=== PATIENT | female | born 1940 | race African-American/Black ===

== ENCOUNTER 2016-12-29 21:11 | Inpatient (IN) | payer MEDICARE, OTHER ==
[~2016-12-29] VITALS: Ht 162.6 cm; Wt 65.8 kg
[2016-12-29 22:01] LABS: BASOPHILS % 0.3 % (0.0-2.0); EOSINOPHILS % 1.5 % (0.0-5.0); HEMATOCRIT. 31.4 % (36.0-48.0); HEMOGLOBIN. 10.2 g/dL (12.0-16.0); LYMPHOCYTES % 10.4 % (20.0-50.0); MEAN CORPUSCULAR HEMOGLOBIN 29.5 pg (28.0-32.0); MEAN CORPUSCULAR VOLUME 90.8 fL (81.0-99.0); MEAN PLATELET VOLUME 8.3 fl (7.4-10.4); MONOCYTES % 5.3 % (2.0-8.0); NEUTROPHILS % 82.5 % (40.0-76.0); PLATELET 215 x1000/uL (130-400); RED BLOOD CELL COUNT 3.46 mill/uL (4.2-5.4); RED CELL DISTRIBUTION WIDTH 14.5 % (11.6-14.6)
[2016-12-29 22:08] LABS: INR 1.1; PROTHROMBIN TIME 11.3 sec (9.4-11.6)
[2016-12-29 22:18] LABS: CARBON DIOXIDE 24 mEq/L (21-32); CHLORIDE 108 mEq/L (98-107); TROPONIN I 0.29 ng/mL (0.00-0.04)
[2016-12-29] MEDS ORDERED: ASPIRIN 325MG EC TABLET PO ONE (22:45)
[2016-12-29] MEDS ORDERED: FUROSEMIDE 40MG/4ML VIAL IVP ONE (22:45)
[2016-12-29 23:50] VITALS: BP 139/77
[2016-12-30] VITALS (9 sets, daily range): BP systolic 136–161; BP diastolic 71–85
[2016-12-30] MEDS ORDERED: IPRATROPIUM/ALBUTEROL 0.5-3(2.5)MG/3ML NEB INH PRN (01:00)
[2016-12-30] MEDS ORDERED: ACETAMINOPHEN 325MG TABLET PO PRN (01:00)
[2016-12-30] MEDS ORDERED: MORPHINE SULFATE 2 MG/ML CPJ (NOT FOR IM USE) IV PRN (01:00)
[2016-12-30] MEDS ORDERED: HYDROCODONE/ACETAMINOPHEN 5/325MG TABLET PO PRN (01:00)
[2016-12-30] MEDS ORDERED: LORAZEPAM 2MG/ML CPJ IV PRN (01:00)
[2016-12-30] MEDS ORDERED: ONDANSETRON HCL 4MG/2ML VIAL IV PRN (01:00)
[2016-12-30] MEDS ORDERED: CLONIDINE 0.1MG TABLET PO PRN (01:00)
[2016-12-30] MEDS ORDERED: DEXTROSE 50% WATER 50ML SYRINGE IV PRN (01:30)
[2016-12-30] MEDS: INSULIN LISPRO 100 UNITS/ML SUBCUT SCH ×4 (08:00→21:00)
[2016-12-30] MEDS: BLOOD SUGAR DIAGNOSTIC STRIP TEST SCH ×4 (08:22→21:26)
[2016-12-30 11:48] LABS: TROPONIN I 0.29 ng/mL (0.00-0.04)
[2016-12-30] MEDS ORDERED: CARVEDILOL 3.125 MG TABLET PO SCH ×2 (13:30→21:00)
[2016-12-30] MEDS: FERROUS SULFATE 325MG TABLET PO SCH (13:56)
[2016-12-30] MEDS: AMLODIPINE 10MG TABLET PO SCH (13:59)
[2016-12-30] MEDS: CARVEDILOL 6.25 MG TABLET PO SCH ×2 (13:59→21:25)
[2016-12-30] MEDS: DOCUSATE SODIUM 100MG CAPSULE PO PRN (14:00)
[2016-12-30] MEDS ORDERED: ISOSORB DINIT/HYDRALAZINE HCL 20/37.5MG TABLET PO SCH (14:00)
[2016-12-30] MEDS: ASPIRIN 81MG EC TABLET PO SCH (14:00)
[2016-12-30] MEDS: HYDRALAZINE HCL 50MG TABLET PO SCH ×2 (14:01→21:26)
[2016-12-30] MEDS: ISOSORBIDE MONONITRATE 30MG TABLET SR 24HR PO SCH (14:01)
[2016-12-30] MEDS: ENOXAPARIN 30MG/0.3ML SYR SUBCUT SCH (14:03)
[2016-12-30] MEDS: FUROSEMIDE 40MG/4ML VIAL IV SCH (14:08)
[2016-12-30 15:29] LABS: BASOPHILS % 0.7 % (0.0-2.0); EOSINOPHILS % 3.2 % (0.0-5.0); HEMATOCRIT. 28.6 % (36.0-48.0); HEMOGLOBIN. 9.5 g/dL (12.0-16.0); LYMPHOCYTES % 20.2 % (20.0-50.0); MEAN CORPUSCULAR HEMOGLOBIN 29.9 pg (28.0-32.0); MEAN CORPUSCULAR VOLUME 90.1 fL (81.0-99.0); MONOCYTES % 10.2 % (2.0-8.0); NEUTROPHILS % 65.7 % (40.0-76.0); PLATELET 202 x1000/uL (130-400); RED BLOOD CELL COUNT 3.17 mill/uL (4.2-5.4); RED CELL DISTRIBUTION WIDTH 13.8 % (11.6-14.6)
[2016-12-30 15:29] LABS: BG CARBOXYHEMOGLOBIN 0.2 % (0.5-1.5); BG DEOXYHEMOGLOBIN 2.1 % (0.0-5.0); BG FRACTION INSPIRED OXYGEN 100; BG HCO3 ACT 22.9 mmol/L (22.0-26.0); BG METHEMOGLOBIN 0.3 % (0.0-1.5); BG OXYGEN SATURATION 97.9 % (92.0-98.5); BG OXYHEMOGLOBIN 97.4 % (94.0-97.0); BG PCO2 34.5 mmHg (35.0-45.0); BG PH 7.439 (7.350-7.450); BG PO2 368.2 mmHg (75.0-100.0); BG SAMPLE SITE RIGHT RADIAL; BG TOTAL HEMOGLOBIN 9.6 g/dL (12.0-18.0); BG VENT MODE MASK - NRB
[2016-12-30] MEDS: INSULIN DETEMIR UD 100 UNITS/ML SYR SUBCUT SCH (21:24)
[2016-12-30] MEDS: ATORVASTATIN CALCIUM 40MG TABLET PO SCH (21:24)
[2016-12-30] MEDS: DONEPEZIL HCL 5MG TABLET PO SCH (21:25)
[2016-12-31] VITALS (13 sets, daily range): BP systolic 117–162; BP diastolic 63–81
[2016-12-31] MEDS: HYDRALAZINE HCL 50MG TABLET PO SCH (06:03)
[2016-12-31 07:08] LABS: BASOPHILS % 0.6 % (0.0-2.0); EOSINOPHILS % 4.3 % (0.0-5.0); HEMATOCRIT. 28.4 % (36.0-48.0); HEMOGLOBIN. 9.5 g/dL (12.0-16.0); LYMPHOCYTES % 20.4 % (20.0-50.0); MEAN CORPUSCULAR VOLUME 89.7 fL (81.0-99.0); MEAN PLATELET VOLUME 8.7 fl (7.4-10.4); NEUTROPHILS % 65.7 % (40.0-76.0); PLATELET 228 x1000/uL (130-400); RED BLOOD CELL COUNT 3.17 mill/uL (4.2-5.4); RED CELL DISTRIBUTION WIDTH 14.3 % (11.6-14.6)
[2016-12-31 07:50] LABS: CARBON DIOXIDE 24 mEq/L (21-32); CHLORIDE 111 mEq/L (98-107); HDL CHOLESTEROL 32 mg/dL (40-59); LDL CHOLESTEROL 49 mg/dL (5-100)
[2016-12-31] MEDS: INSULIN LISPRO 100 UNITS/ML SUBCUT SCH ×4 (08:00→21:18)
[2016-12-31] MEDS: BLOOD SUGAR DIAGNOSTIC STRIP TEST SCH ×4 (08:20→21:11)
[2016-12-31] MEDS: FERROUS SULFATE 325MG TABLET PO SCH (08:50)
[2016-12-31] MEDS: ISOSORBIDE MONONITRATE 30MG TABLET SR 24HR PO SCH (08:50)
[2016-12-31] MEDS: ASPIRIN 81MG EC TABLET PO SCH (08:50)
[2016-12-31] MEDS: CARVEDILOL 6.25 MG TABLET PO SCH (08:50)
[2016-12-31] MEDS: AMLODIPINE 10MG TABLET PO SCH (08:50)
[2016-12-31] MEDS: FUROSEMIDE 40MG/4ML VIAL IV SCH (08:50)
[2016-12-31] MEDS: ENOXAPARIN 30MG/0.3ML SYR SUBCUT SCH (08:51)
[2016-12-31] MEDS: LOSARTAN POTASSIUM 25 MG TABLET PO SCH (14:29)
[2016-12-31] MEDS: HYDRALAZINE HCL 100MG TABLET PO SCH ×2 (14:29→21:04)
[2016-12-31] MEDS: CARVEDILOL 12.5MG TABLET PO SCH (21:03)
[2016-12-31] MEDS: DONEPEZIL HCL 5MG TABLET PO SCH (21:03)
[2016-12-31] MEDS: ATORVASTATIN CALCIUM 40MG TABLET PO SCH (21:04)
[2016-12-31] MEDS: LORAZEPAM 2MG/ML CPJ IV PRN (21:06)
[2016-12-31] MEDS: INSULIN DETEMIR UD 100 UNITS/ML SYR SUBCUT SCH (21:19)
[2017-01-01] VITALS (12 sets, daily range): BP systolic 112–167; BP diastolic 55–85
[2017-01-01] MEDS: HYDRALAZINE HCL 100MG TABLET PO SCH ×3 (05:52→21:20)
[2017-01-01 06:10] LABS: BASOPHILS % 0.4 % (0.0-2.0); EOSINOPHILS % 0.9 % (0.0-5.0); HEMATOCRIT. 30.2 % (36.0-48.0); HEMOGLOBIN. 9.9 g/dL (12.0-16.0); LYMPHOCYTES % 10.9 % (20.0-50.0); MEAN CORPUSCULAR HEMOGLOBIN 29.5 pg (28.0-32.0); MEAN CORPUSCULAR VOLUME 89.7 fL (81.0-99.0); MEAN PLATELET VOLUME 8.3 fl (7.4-10.4); NEUTROPHILS % 81.8 % (40.0-76.0); PLATELET 262 x1000/uL (130-400); RED BLOOD CELL COUNT 3.36 mill/uL (4.2-5.4); RED CELL DISTRIBUTION WIDTH 14.2 % (11.6-14.6)
[2017-01-01] MEDS: INSULIN LISPRO 100 UNITS/ML SUBCUT SCH ×4 (08:00→21:43)
[2017-01-01] MEDS: BLOOD SUGAR DIAGNOSTIC STRIP TEST SCH ×4 (08:10→21:28)
[2017-01-01] MEDS: FUROSEMIDE 40MG/4ML VIAL IV SCH (08:24)
[2017-01-01] MEDS: FERROUS SULFATE 325MG TABLET PO SCH (08:24)
[2017-01-01] MEDS: ENOXAPARIN 30MG/0.3ML SYR SUBCUT SCH (08:24)
[2017-01-01] MEDS: AMLODIPINE 10MG TABLET PO SCH (08:25)
[2017-01-01] MEDS: ISOSORBIDE MONONITRATE 30MG TABLET SR 24HR PO SCH (08:25)
[2017-01-01] MEDS: ASPIRIN 81MG EC TABLET PO SCH (08:25)
[2017-01-01] MEDS: CARVEDILOL 12.5MG TABLET PO SCH ×2 (08:25→21:23)
[2017-01-01] MEDS: LOSARTAN POTASSIUM 25 MG TABLET PO SCH (08:26)
[2017-01-01] MEDS: ATORVASTATIN CALCIUM 40MG TABLET PO SCH (21:23)
[2017-01-01] MEDS: LORAZEPAM 2MG/ML CPJ IV PRN (21:23)
[2017-01-01] MEDS: DONEPEZIL HCL 5MG TABLET PO SCH (21:23)
[2017-01-01] MEDS: INSULIN DETEMIR UD 100 UNITS/ML SYR SUBCUT SCH (21:48)
[2017-01-02] VITALS (12 sets, daily range): BP systolic 109–146; BP diastolic 54–75
[2017-01-02] MEDS: HYDRALAZINE HCL 100MG TABLET PO SCH ×3 (06:12→21:52)
[2017-01-02 06:41] LABS: BASOPHILS % 0.9 % (0.0-2.0); EOSINOPHILS % 3.4 % (0.0-5.0); HEMATOCRIT. 34.6 % (36.0-48.0); HEMOGLOBIN. 11.5 g/dL (12.0-16.0); LYMPHOCYTES % 21.6 % (20.0-50.0); MEAN CORPUSCULAR HEMOGLOBIN 30.2 pg (28.0-32.0); MEAN CORPUSCULAR VOLUME 90.9 fL (81.0-99.0); MEAN PLATELET VOLUME 8.1 fl (7.4-10.4); MONOCYTES % 7.8 % (2.0-8.0); NEUTROPHILS % 66.3 % (40.0-76.0); PLATELET 283 x1000/uL (130-400); RED CELL DISTRIBUTION WIDTH 14.3 % (11.6-14.6)
[2017-01-02] MEDS: INSULIN LISPRO 100 UNITS/ML SUBCUT SCH ×4 (08:00→21:53)
[2017-01-02] MEDS: BLOOD SUGAR DIAGNOSTIC STRIP TEST SCH ×4 (08:03→21:54)
[2017-01-02] MEDS: FUROSEMIDE 40MG/4ML VIAL IV SCH (09:01)
[2017-01-02] MEDS: LOSARTAN POTASSIUM 25 MG TABLET PO SCH (09:02)
[2017-01-02] MEDS: ASPIRIN 81MG EC TABLET PO SCH (09:03)
[2017-01-02] MEDS: AMLODIPINE 10MG TABLET PO SCH (09:03)
[2017-01-02] MEDS: ISOSORBIDE MONONITRATE 30MG TABLET SR 24HR PO SCH (09:04)
[2017-01-02] MEDS: FERROUS SULFATE 325MG TABLET PO SCH (09:04)
[2017-01-02] MEDS: CARVEDILOL 12.5MG TABLET PO SCH ×2 (09:04→21:52)
[2017-01-02] MEDS: ENOXAPARIN 30MG/0.3ML SYR SUBCUT SCH (09:06)
[2017-01-02 15:12] LABS: ANTI-NUCLEAR ANTIBODIES DIRECT Positive (Negative)
[2017-01-02] MEDS: DONEPEZIL HCL 5MG TABLET PO SCH (21:51)
[2017-01-02] MEDS: ATORVASTATIN CALCIUM 40MG TABLET PO SCH (21:52)
[2017-01-02] MEDS: INSULIN DETEMIR UD 100 UNITS/ML SYR SUBCUT SCH (21:54)
[2017-01-03] VITALS (10 sets, daily range): BP systolic 126–185; BP diastolic 56–80
[2017-01-03] MEDS: HYDRALAZINE HCL 100MG TABLET PO SCH ×3 (05:36→21:15)
[2017-01-03] MEDS: INSULIN LISPRO 100 UNITS/ML SUBCUT SCH ×4 (08:00→21:31)
[2017-01-03] MEDS: BLOOD SUGAR DIAGNOSTIC STRIP TEST SCH ×4 (08:10→21:32)
[2017-01-03] MEDS: AMLODIPINE 10MG TABLET PO SCH (08:31)
[2017-01-03] MEDS: ASPIRIN 81MG EC TABLET PO SCH (08:31)
[2017-01-03] MEDS: DOCUSATE SODIUM 100MG CAPSULE PO PRN (08:31)
[2017-01-03] MEDS: CARVEDILOL 12.5MG TABLET PO SCH ×2 (08:32→21:16)
[2017-01-03] MEDS: FUROSEMIDE 40MG/4ML VIAL IV SCH (08:32)
[2017-01-03] MEDS: LOSARTAN POTASSIUM 25 MG TABLET PO SCH (08:33)
[2017-01-03] MEDS: FERROUS SULFATE 325MG TABLET PO SCH (08:34)
[2017-01-03] MEDS: ISOSORBIDE MONONITRATE 30MG TABLET SR 24HR PO SCH (08:34)
[2017-01-03] MEDS: ENOXAPARIN 30MG/0.3ML SYR SUBCUT SCH (08:41)
[2017-01-03 09:11] LABS: DRVVT LA 42.6 sec (0.0-47.0)
[2017-01-03 10:06] LABS: LUPUS ANTICOAG INTERPRETATION Comment: (.)
[2017-01-03] MEDS: ATORVASTATIN CALCIUM 40MG TABLET PO SCH (21:15)
[2017-01-03] MEDS: DONEPEZIL HCL 5MG TABLET PO SCH (21:16)
[2017-01-03] MEDS: INSULIN DETEMIR UD 100 UNITS/ML SYR SUBCUT SCH (21:32)
[2017-01-04] VITALS (10 sets, daily range): BP systolic 119–147; BP diastolic 63–79
[2017-01-04] MEDS: HYDRALAZINE HCL 100MG TABLET PO SCH ×3 (05:30→22:13)
[2017-01-04] MEDS: BLOOD SUGAR DIAGNOSTIC STRIP TEST SCH ×4 (07:30→21:02)
[2017-01-04] MEDS: INSULIN LISPRO 100 UNITS/ML SUBCUT SCH ×4 (08:00→21:16)
[2017-01-04] MEDS: CARVEDILOL 12.5MG TABLET PO SCH ×2 (10:07→21:09)
[2017-01-04] MEDS: DOCUSATE SODIUM 100MG CAPSULE PO PRN (10:08)
[2017-01-04] MEDS: ISOSORBIDE MONONITRATE 30MG TABLET SR 24HR PO SCH (10:08)
[2017-01-04] MEDS: FERROUS SULFATE 325MG TABLET PO SCH (10:08)
[2017-01-04] MEDS: LOSARTAN POTASSIUM 25 MG TABLET PO SCH (10:08)
[2017-01-04] MEDS: ASPIRIN 81MG EC TABLET PO SCH (10:08)
[2017-01-04] MEDS: FUROSEMIDE 40MG/4ML VIAL IV SCH (10:09)
[2017-01-04] MEDS: AMLODIPINE 10MG TABLET PO SCH (10:09)
[2017-01-04] MEDS: ENOXAPARIN 30MG/0.3ML SYR SUBCUT SCH (10:26)
[2017-01-04] MEDS ORDERED: LORAZEPAM 2MG/ML CPJ IV PRN (10:45)
[2017-01-04] MEDS: DONEPEZIL HCL 5MG TABLET PO SCH (21:09)
[2017-01-04] MEDS: ATORVASTATIN CALCIUM 40MG TABLET PO SCH (21:09)
[2017-01-04] MEDS: INSULIN DETEMIR UD 100 UNITS/ML SYR SUBCUT SCH (21:16)
[2017-01-05 09:07] LABS: ANGIOTENSION CONVERTING ENZYME 74 U/L (14-82)
[2017-01-05 13:12] LABS: ANTI-MYELOPEROXIDASE AB < 9.0 U/mL (0.0-9.0); ANTI-PROTEINASE 3 ABS < 3.5 U/mL (0.0-3.5)
[2017-01-05 14:17] LABS: ATYPICAL P-ANCA <1:20 titer (Neg:<1:20); CYTOPLASMIC C-ANCA <1:20 titer (Neg:<1:20); PERINUCLEAR P-ANCA <1:20 titer (Neg:<1:20)
== END 2017-01-04 23:45 | DRG 291 ==
LOC: ER 21:11 → EDBEDREQTM 22:45 → EDBEDREQ 22:45 → 5EST 22:45 → ENRESERV 23:00 → 5EST 01-01 21:35
PROVIDERS: ADMIT Family Medicine Adult Medicine; ATTEND Family Medicine Adult Medicine
PROC: 5A09557 Assistance with Respiratory Ventilation, Greater than 96 Consecutive Hours, Continuous Positive Airway Pressure (ICD-10-PCS; principal; 2016-12-29)
DX: I13.0 Hypertensive heart and chronic kidney disease with heart failure and stage 1 through stage 4 chronic kidney disease, or unspecified chronic kidney disease (principal); J96.00 Acute respiratory failure, unspecified whether with hypoxia or hypercapnia; N17.0 Acute kidney failure with tubular necrosis; E43 Unspecified severe protein-calorie malnutrition; E87.2 Acidosis; J18.9 Pneumonia, unspecified organism; N18.4 Chronic kidney disease, stage 4 (severe); E11.22 Type 2 diabetes mellitus with diabetic chronic kidney disease; D63.8 Anemia in other chronic diseases classified elsewhere; I50.43 Acute on chronic combined systolic (congestive) and diastolic (congestive) heart failure; J96.20 Acute and chronic respiratory failure, unspecified whether with hypoxia or hypercapnia; D50.9 Iron deficiency anemia, unspecified; E78.00 Pure hypercholesterolemia, unspecified; E78.5 Hyperlipidemia, unspecified; F03.90 Unspecified dementia, unspecified severity, without behavioral disturbance, psychotic disturbance, mood disturbance, and anxiety; I25.10 Atherosclerotic heart disease of native coronary artery without angina pectoris; I25.2 Old myocardial infarction; I25.5 Ischemic cardiomyopathy; Z79.4 Long term (current) use of insulin; Z98.42 Cataract extraction status, left eye; Z98.41 Cataract extraction status, right eye; Z83.3 Family history of diabetes mellitus; Z82.49 Family history of ischemic heart disease and other diseases of the circulatory system; Z84.1 Family history of disorders of kidney and ureter; Z90.49 Acquired absence of other specified parts of digestive tract; R26.9 Unspecified abnormalities of gait and mobility
CPT/HCPCS: 36415; 36600; 71010; 71250; 76770; 78580; 80048; 80053; 80061; 82164; 82375; 82805; 82962; 83036; 83520; 83540; 83550; 83735; 83880; 84443; 84484; 85025; 85610; 85613; 85732; 86038; 86256; 86431; 92610; 93005; 93306; 93970; 94660; 96374; 97116; 97162; 97166; 97530; 97535; 99291; J1650; J1815; J1940; J2060; J2405; J7620

== ENCOUNTER 2017-01-04 23:45 | Inpatient (IN) | payer MEDICARE, OTHER ==
[~2017-01-04] VITALS: Ht 162.6 cm; Wt 61.7 kg
[2017-01-04 23:45] VITALS: BP 145/65
[2017-01-05 00:23] VITALS: BP 145/65
[2017-01-05] MEDS ORDERED: DEXTROSE 50% WATER 50ML SYRINGE IV PRN (01:00)
[2017-01-05] MEDS ORDERED: ACETAMINOPHEN 325MG TABLET PO PRN (01:00)
[2017-01-05] MEDS ORDERED: ONDANSETRON HCL 4MG TABLET PO PRN (01:00)
[2017-01-05] MEDS ORDERED: IPRATROPIUM/ALBUTEROL 0.5-3(2.5)MG/3ML NEB HHN PRN (01:00)
[2017-01-05] MEDS ORDERED: CLONIDINE 0.1MG TABLET PO PRN (01:00)
[2017-01-05] MEDS ORDERED: LORAZEPAM 0.5MG TABLET PO PRN (01:00)
[2017-01-05] MEDS ORDERED: DOCUSATE SODIUM 100MG CAPSULE PO PRN (01:00)
[2017-01-05] MEDS: HYDRALAZINE HCL 100MG TABLET PO SCH ×3 (05:25→22:00)
[2017-01-05] MEDS: BLOOD SUGAR DIAGNOSTIC STRIP TEST SCH ×4 (05:25→21:40)
[2017-01-05 06:21] LABS: BASOPHILS % 0.6 % (0.0-2.0); EOSINOPHILS % 2.3 % (0.0-5.0); HEMATOCRIT. 35.1 % (36.0-48.0); HEMOGLOBIN. 11.6 g/dL (12.0-16.0); LYMPHOCYTES % 16.1 % (20.0-50.0); MEAN CORPUSCULAR HEMOGLOBIN 30.1 pg (28.0-32.0); MEAN PLATELET VOLUME 8.1 fl (7.4-10.4); MONOCYTES % 7.4 % (2.0-8.0); NEUTROPHILS % 73.6 % (40.0-76.0); PLATELET 279 x1000/uL (130-400); RED BLOOD CELL COUNT 3.85 mill/uL (4.2-5.4); RED CELL DISTRIBUTION WIDTH 14.5 % (11.6-14.6)
[2017-01-05 06:43] LABS: CARBON DIOXIDE 26 mEq/L (21-32); CHLORIDE 109 mEq/L (98-107)
[2017-01-05 06:49] LABS: PREALBUMIN 18.5 mg/dL (20.0-40.0)
[2017-01-05 08:00] VITALS: BP 137/67
[2017-01-05] MEDS: WATER IV NR (08:45)
[2017-01-05] MEDS: DEXT 5% IV NR (08:45)
[2017-01-05] MEDS: INSULIN LISPRO 100 UNITS/ML SUBCUT SCH ×4 (09:00→21:45)
[2017-01-05] MEDS: ASPIRIN 81MG EC TABLET PO SCH (10:12)
[2017-01-05] MEDS: FERROUS SULFATE 325MG TABLET PO SCH (10:12)
[2017-01-05] MEDS: FUROSEMIDE 40MG TABLET PO SCH (10:12)
[2017-01-05] MEDS: LOSARTAN POTASSIUM 25 MG TABLET PO SCH (10:12)
[2017-01-05] MEDS: ISOSORBIDE MONONITRATE 30MG TABLET SR 24HR PO SCH (10:12)
[2017-01-05] MEDS: ENOXAPARIN 30MG/0.3ML SYR SUBCUT SCH (10:13)
[2017-01-05] MEDS: CARVEDILOL 12.5MG TABLET PO SCH ×2 (10:13→21:39)
[2017-01-05] MEDS: AMLODIPINE 10MG TABLET PO SCH (10:13)
[2017-01-05 12:30] VITALS: BP 153/68
[2017-01-05 20:00] VITALS: BP 126/65
[2017-01-05] MEDS: ATORVASTATIN CALCIUM 40MG TABLET PO SCH (21:39)
[2017-01-05] MEDS: DONEPEZIL HCL 5MG TABLET PO SCH (21:39)
[2017-01-05] MEDS: INSULIN DETEMIR UD 100 UNITS/ML SYR SUBCUT SCH (21:46)
[2017-01-06] MEDS: WATER IV NR (04:45)
[2017-01-06] MEDS: DEXT 5% IV NR (04:45)
[2017-01-06] MEDS: HYDRALAZINE HCL 100MG TABLET PO SCH ×3 (06:09→22:00)
[2017-01-06] MEDS: BLOOD SUGAR DIAGNOSTIC STRIP TEST SCH ×4 (06:10→21:30)
[2017-01-06] MEDS: INSULIN LISPRO 100 UNITS/ML SUBCUT SCH ×4 (06:16→23:04)
[2017-01-06 06:24] LABS: BASOPHILS % 0.8 % (0.0-2.0); HEMATOCRIT. 31.6 % (36.0-48.0); HEMOGLOBIN. 10.3 g/dL (12.0-16.0); LYMPHOCYTES % 19.2 % (20.0-50.0); MEAN CORPUSCULAR HEMOGLOBIN 29.4 pg (28.0-32.0); MEAN CORPUSCULAR VOLUME 90.1 fL (81.0-99.0); MEAN PLATELET VOLUME 8.4 fl (7.4-10.4); MONOCYTES % 8.8 % (2.0-8.0); NEUTROPHILS % 68.2 % (40.0-76.0); PLATELET 272 x1000/uL (130-400); RED CELL DISTRIBUTION WIDTH 14.2 % (11.6-14.6)
[2017-01-06 08:00] VITALS: BP 127/53
[2017-01-06] MEDS: FERROUS SULFATE 325MG TABLET PO SCH (08:33)
[2017-01-06] MEDS: FUROSEMIDE 40MG TABLET PO SCH (08:34)
[2017-01-06] MEDS: ASPIRIN 81MG EC TABLET PO SCH (08:34)
[2017-01-06] MEDS: AMLODIPINE 10MG TABLET PO SCH (08:35)
[2017-01-06] MEDS: ENOXAPARIN 30MG/0.3ML SYR SUBCUT SCH (08:35)
[2017-01-06] MEDS: LOSARTAN POTASSIUM 25 MG TABLET PO SCH (08:36)
[2017-01-06] MEDS: CARVEDILOL 12.5MG TABLET PO SCH ×2 (08:37→21:29)
[2017-01-06] MEDS: ISOSORBIDE MONONITRATE 30MG TABLET SR 24HR PO SCH (08:58)
[2017-01-06] MEDS ORDERED: DONEPEZIL HCL 5MG TABLET PO SCH (09:00)
[2017-01-06 20:00] VITALS: BP 117/65
[2017-01-06] MEDS: ATORVASTATIN CALCIUM 40MG TABLET PO SCH (21:30)
[2017-01-06] MEDS: DONEPEZIL HCL 5MG TABLET PO SCH (21:30)
[2017-01-06] MEDS: INSULIN DETEMIR UD 100 UNITS/ML SYR SUBCUT SCH (23:03)
[2017-01-07 00:26] LABS: CLARITY URINE CLEAR (CLEAR); COLOR URINE YELLOW (YELLOW); GLUCOSE URINE NEGATIVE (NEGATIVE); KETONES URINE NEGATIVE (NEGATIVE); LEUKOCYTE ESTERASE URINE TRACE (NEGATIVE); NITRITE URINE NEGATIVE (NEGATIVE); OCCULT BLOOD URINE NEGATIVE (NEGATIVE); PROTEIN URINE 3+ (NEGATIVE); SPECIFIC GRAVITY URINE 1.013 (1.005-1.030); UROBILINOGEN URINE 0.2 E.U./dL (0.2-1.0)
[2017-01-07] MEDS: BLOOD SUGAR DIAGNOSTIC STRIP TEST SCH ×4 (06:24→21:28)
[2017-01-07] MEDS: HYDRALAZINE HCL 100MG TABLET PO SCH ×3 (06:24→23:44)
[2017-01-07] MEDS: INSULIN LISPRO 100 UNITS/ML SUBCUT SCH ×4 (06:25→21:00)
[2017-01-07] MEDS ORDERED: OMEPRAZOLE 20MG CAPSULE EXTENDED RELEASE PO SCH (07:00)
[2017-01-07 07:41] VITALS: BP 143/89
[2017-01-07 08:00] VITALS: BP 143/89
[2017-01-07 08:33] LABS: FERRITIN 93 ng/mL (10-291)
[2017-01-07 08:36] LABS: BASOPHILS % 0.6 % (0.0-2.0); EOSINOPHILS % 2.9 % (0.0-5.0); HEMATOCRIT. 36.1 % (36.0-48.0); LYMPHOCYTES % 13.7 % (20.0-50.0); MEAN CORPUSCULAR HEMOGLOBIN 30.3 pg (28.0-32.0); MEAN CORPUSCULAR VOLUME 91.4 fL (81.0-99.0); NEUTROPHILS % 75.8 % (40.0-76.0); RED BLOOD CELL COUNT 3.95 mill/uL (4.2-5.4); RED CELL DISTRIBUTION WIDTH 14.3 % (11.6-14.6)
[2017-01-07 09:17] LABS: PHOSPHORUS 4.3 mg/dL (2.5-4.9); T4 FREE 1.2 ng/dL (0.76-1.46)
[2017-01-07] MEDS: CARVEDILOL 12.5MG TABLET PO SCH ×2 (09:35→21:28)
[2017-01-07] MEDS: ISOSORBIDE MONONITRATE 30MG TABLET SR 24HR PO SCH (09:35)
[2017-01-07] MEDS: FERROUS SULFATE 325MG TABLET PO SCH (09:35)
[2017-01-07] MEDS: ASPIRIN 81MG EC TABLET PO SCH (09:35)
[2017-01-07] MEDS: AMLODIPINE 10MG TABLET PO SCH (09:36)
[2017-01-07] MEDS: ENOXAPARIN 30MG/0.3ML SYR SUBCUT SCH (09:36)
[2017-01-07 10:27] LABS: AMMONIA 33 uMol/L (<32)
[2017-01-07 10:31] LABS: FOLIC ACID (FOLATE) SERUM > 20.00 ng/mL (>5.38); VITAMIN B12 SERUM > 2000.0 pg/mL (211-911)
[2017-01-07 17:25] LABS: MEAN PLATELET VOLUME 9.3 fl (7.4-10.4); PLATELET 292 x1000/uL (130-400)
[2017-01-07 20:00] VITALS: BP 151/70
[2017-01-07] MEDS: ATORVASTATIN CALCIUM 40MG TABLET PO SCH (21:28)
[2017-01-07] MEDS: DONEPEZIL HCL 5MG TABLET PO SCH (21:28)
[2017-01-07] MEDS: INSULIN DETEMIR UD 100 UNITS/ML SYR SUBCUT SCH (23:48)
[2017-01-08] MEDS: BLOOD SUGAR DIAGNOSTIC STRIP TEST SCH ×4 (06:30→21:25)
[2017-01-08 08:00] VITALS: BP 138/79
[2017-01-08] MEDS: INSULIN LISPRO 100 UNITS/ML SUBCUT SCH ×4 (09:00→21:00)
[2017-01-08] MEDS: ENOXAPARIN 30MG/0.3ML SYR SUBCUT SCH (09:26)
[2017-01-08] MEDS: ASPIRIN 81MG EC TABLET PO SCH (09:26)
[2017-01-08] MEDS: FERROUS SULFATE 325MG TABLET PO SCH (09:26)
[2017-01-08] MEDS: ISOSORBIDE MONONITRATE 30MG TABLET SR 24HR PO SCH (09:27)
[2017-01-08] MEDS: CARVEDILOL 12.5MG TABLET PO SCH ×2 (09:27→21:26)
[2017-01-08] MEDS: AMLODIPINE 10MG TABLET PO SCH (09:27)
[2017-01-08 10:07] LABS: HEMATOCRIT. 30.8 % (36.0-48.0); HEMOGLOBIN. 10.1 g/dL (12.0-16.0); MEAN CORPUSCULAR HEMOGLOBIN 29.5 pg (28.0-32.0); MEAN CORPUSCULAR VOLUME 90.2 fL (81.0-99.0); MEAN PLATELET VOLUME 8.5 fl (7.4-10.4); PLATELET 294 x1000/uL (130-400); RED BLOOD CELL COUNT 3.41 mill/uL (4.2-5.4); RED CELL DISTRIBUTION WIDTH 14.2 % (11.6-14.6)
[2017-01-08] MEDS: HYDRALAZINE HCL 100MG TABLET PO SCH ×2 (13:17→21:25)
[2017-01-08] MEDS ORDERED: FLUCONAZOLE 100MG TABLET PO SCH (14:00)
[2017-01-08] MEDS: LACTULOSE 20G/30ML UDC PO SCH (18:04)
[2017-01-08 20:00] VITALS: BP 150/65
[2017-01-08] MEDS: DONEPEZIL HCL 5MG TABLET PO SCH (21:24)
[2017-01-08] MEDS: ATORVASTATIN CALCIUM 40MG TABLET PO SCH (21:24)
[2017-01-08] MEDS: INSULIN DETEMIR UD 100 UNITS/ML SYR SUBCUT SCH (21:27)
[2017-01-09 03:10] LABS: PLATELET ESTIMATE NORMAL
[2017-01-09] MEDS: HYDRALAZINE HCL 100MG TABLET PO SCH ×3 (05:35→22:13)
[2017-01-09] MEDS: BLOOD SUGAR DIAGNOSTIC STRIP TEST SCH ×4 (06:26→21:07)
[2017-01-09] MEDS: FAMOTIDINE 20MG TABLET PO SCH (06:26)
[2017-01-09 06:57] LABS: BASOPHILS % 0.7 % (0.0-2.0); EOSINOPHILS % 4.3 % (0.0-5.0); HEMATOCRIT. 30.6 % (36.0-48.0); HEMOGLOBIN. 10.1 g/dL (12.0-16.0); LYMPHOCYTES % 19.1 % (20.0-50.0); MEAN CORPUSCULAR HEMOGLOBIN 29.6 pg (28.0-32.0); MEAN CORPUSCULAR VOLUME 89.7 fL (81.0-99.0); MONOCYTES % 10.4 % (2.0-8.0); NEUTROPHILS % 65.5 % (40.0-76.0); PLATELET 300 x1000/uL (130-400); RED BLOOD CELL COUNT 3.41 mill/uL (4.2-5.4); RED CELL DISTRIBUTION WIDTH 14.1 % (11.6-14.6)
[2017-01-09 07:00] VITALS: BP 102/63
[2017-01-09] MEDS: INSULIN LISPRO 100 UNITS/ML SUBCUT SCH ×4 (07:07→21:07)
[2017-01-09] MEDS: LACTULOSE 20G/30ML UDC PO SCH ×3 (08:33→16:29)
[2017-01-09] MEDS: FLUCONAZOLE 100MG TABLET PO SCH (08:33)
[2017-01-09] MEDS: CARVEDILOL 12.5MG TABLET PO SCH ×2 (08:34→21:02)
[2017-01-09] MEDS: ENOXAPARIN 30MG/0.3ML SYR SUBCUT SCH (08:34)
[2017-01-09] MEDS: ASPIRIN 81MG EC TABLET PO SCH (08:34)
[2017-01-09] MEDS: FERROUS SULFATE 325MG TABLET PO SCH (08:34)
[2017-01-09] MEDS: AMLODIPINE 10MG TABLET PO SCH (08:35)
[2017-01-09] MEDS: ISOSORBIDE MONONITRATE 30MG TABLET SR 24HR PO SCH (08:35)
[2017-01-09] MEDS ORDERED: SODIUM CHLORIDE 0.9% 500 ML IV ONE (12:30)
[2017-01-09 16:20] VITALS: BP 127/70
[2017-01-09] MEDS ORDERED: ALPRAZOLAM 0.25 MG TABLET PO PRN (17:15)
[2017-01-09 20:00] VITALS: BP 152/57
[2017-01-09] MEDS: ATORVASTATIN CALCIUM 40MG TABLET PO SCH (21:01)
[2017-01-09] MEDS: DONEPEZIL HCL 5MG TABLET PO SCH (21:02)
[2017-01-09] MEDS: TEMAZEPAM 15MG CAPSULE PO SCH (22:12)
[2017-01-09] MEDS: INSULIN DETEMIR UD 100 UNITS/ML SYR SUBCUT SCH (22:17)
[2017-01-10] MEDS: HYDRALAZINE HCL 100MG TABLET PO SCH ×3 (06:31→22:00)
[2017-01-10] MEDS: FAMOTIDINE 20MG TABLET PO SCH (06:31)
[2017-01-10] MEDS: BLOOD SUGAR DIAGNOSTIC STRIP TEST SCH ×4 (06:31→20:51)
[2017-01-10] MEDS: INSULIN LISPRO 100 UNITS/ML SUBCUT SCH ×4 (06:36→20:53)
[2017-01-10 06:50] LABS: AMMONIA 28 uMol/L (<32); BASOPHILS % 0.9 % (0.0-2.0); EOSINOPHILS % 4.5 % (0.0-5.0); HEMATOCRIT. 35.9 % (36.0-48.0); HEMOGLOBIN. 11.8 g/dL (12.0-16.0); LYMPHOCYTES % 20.9 % (20.0-50.0); MEAN CORPUSCULAR VOLUME 91.3 fL (81.0-99.0); MEAN PLATELET VOLUME 8.4 fl (7.4-10.4); NEUTROPHILS % 63.7 % (40.0-76.0); PLATELET 280 x1000/uL (130-400); RED BLOOD CELL COUNT 3.93 mill/uL (4.2-5.4); RED CELL DISTRIBUTION WIDTH 14.3 % (11.6-14.6)
[2017-01-10 08:00] VITALS: BP 169/60
[2017-01-10] MEDS ORDERED: NA PHOS,M-B/NA PHOS,DI-BA ENEMA 118ML PR PRN (09:45)
[2017-01-10] MEDS ORDERED: BISACODYL 10MG SUPP PR PRN (09:45)
[2017-01-10] MEDS ORDERED: ONDANSETRON HCL 4MG/2ML VIAL IV PRN (09:45)
[2017-01-10] MEDS ORDERED: NA PHOS,M-B/NA PHOS,DI-BA ENEMA 118ML PR NR (09:45)
[2017-01-10] MEDS: ASPIRIN 81MG EC TABLET PO SCH (10:27)
[2017-01-10] MEDS: ISOSORBIDE MONONITRATE 30MG TABLET SR 24HR PO SCH (10:27)
[2017-01-10] MEDS: AMLODIPINE 10MG TABLET PO SCH (10:27)
[2017-01-10] MEDS: FLUCONAZOLE 100MG TABLET PO SCH (10:27)
[2017-01-10] MEDS: CARVEDILOL 12.5MG TABLET PO SCH ×2 (10:27→20:52)
[2017-01-10] MEDS: FERROUS SULFATE 325MG TABLET PO SCH (10:27)
[2017-01-10] MEDS: ENOXAPARIN 30MG/0.3ML SYR SUBCUT SCH (10:28)
[2017-01-10] MEDS: LACTULOSE 20G/30ML UDC PO SCH ×2 (10:28→17:00)
[2017-01-10 13:30] VITALS: BP 123/58
[2017-01-10 17:12] LABS: 25-HYDROXY VITAMIN D3 25 ng/mL (.)
[2017-01-10 20:00] VITALS: BP 136/66
[2017-01-10] MEDS: ATORVASTATIN CALCIUM 40MG TABLET PO SCH (20:50)
[2017-01-10] MEDS: DONEPEZIL HCL 5MG TABLET PO SCH (20:50)
[2017-01-10] MEDS: TEMAZEPAM 15MG CAPSULE PO SCH (22:13)
[2017-01-10] MEDS: INSULIN DETEMIR UD 100 UNITS/ML SYR SUBCUT SCH (22:18)
[2017-01-11] MEDS: FAMOTIDINE 20MG TABLET PO SCH (06:04)
[2017-01-11] MEDS: INSULIN LISPRO 100 UNITS/ML SUBCUT SCH ×4 (06:05→21:00)
[2017-01-11] MEDS: HYDRALAZINE HCL 100MG TABLET PO SCH ×3 (06:05→21:38)
[2017-01-11] MEDS: BLOOD SUGAR DIAGNOSTIC STRIP TEST SCH ×4 (06:05→21:26)
[2017-01-11 06:10] LABS: BASOPHILS % 0.9 % (0.0-2.0); EOSINOPHILS % 6.1 % (0.0-5.0); HEMATOCRIT. 28.8 % (36.0-48.0); HEMOGLOBIN. 9.5 g/dL (12.0-16.0); LYMPHOCYTES % 25.8 % (20.0-50.0); MEAN CORPUSCULAR HEMOGLOBIN 29.9 pg (28.0-32.0); MEAN CORPUSCULAR VOLUME 90.7 fL (81.0-99.0); MEAN PLATELET VOLUME 7.8 fl (7.4-10.4); MONOCYTES % 12.4 % (2.0-8.0); NEUTROPHILS % 54.8 % (40.0-76.0); PLATELET 287 x1000/uL (130-400); RED BLOOD CELL COUNT 3.17 mill/uL (4.2-5.4); RED CELL DISTRIBUTION WIDTH 14.1 % (11.6-14.6)
[2017-01-11 08:00] VITALS: BP 128/57
[2017-01-11] MEDS: CARVEDILOL 12.5MG TABLET PO SCH ×2 (08:26→21:37)
[2017-01-11] MEDS: FERROUS SULFATE 325MG TABLET PO SCH (08:26)
[2017-01-11] MEDS: ASPIRIN 81MG EC TABLET PO SCH (08:26)
[2017-01-11] MEDS: LACTULOSE 20G/30ML UDC PO SCH ×2 (08:26→16:51)
[2017-01-11] MEDS: ISOSORBIDE MONONITRATE 30MG TABLET SR 24HR PO SCH (08:26)
[2017-01-11] MEDS: FLUCONAZOLE 100MG TABLET PO SCH (08:27)
[2017-01-11] MEDS: AMLODIPINE 10MG TABLET PO SCH (08:27)
[2017-01-11] MEDS: ENOXAPARIN 30MG/0.3ML SYR SUBCUT SCH (08:27)
[2017-01-11] MEDS ORDERED: NA PHOS,M-B/NA PHOS,DI-BA ENEMA 118ML PR PRN (09:00)
[2017-01-11] MEDS ORDERED: BISACODYL 10MG SUPP PR SCH (09:00)
[2017-01-11] MEDS: SODIUM CHLORIDE 0.9% 1,000 ML IV SCH (17:06)
[2017-01-11 20:00] VITALS: BP 143/62
[2017-01-11] MEDS: TEMAZEPAM 15MG CAPSULE PO SCH (21:00)
[2017-01-11] MEDS: INSULIN DETEMIR UD 100 UNITS/ML SYR SUBCUT SCH (21:27)
[2017-01-11] MEDS: DONEPEZIL HCL 5MG TABLET PO SCH (21:37)
[2017-01-11] MEDS: ATORVASTATIN CALCIUM 40MG TABLET PO SCH (21:37)
[2017-01-12] MEDS: SODIUM CHLORIDE 0.9% 1,000 ML IV SCH ×3 (05:27→21:57)
[2017-01-12] MEDS: HYDRALAZINE HCL 100MG TABLET PO SCH ×3 (05:28→22:00)
[2017-01-12] MEDS: FAMOTIDINE 20MG TABLET PO SCH (06:29)
[2017-01-12] MEDS: BLOOD SUGAR DIAGNOSTIC STRIP TEST SCH ×4 (06:31→21:53)
[2017-01-12 08:00] VITALS: BP 144/58
[2017-01-12] MEDS: LACTULOSE 20G/30ML UDC PO SCH ×2 (08:26→16:14)
[2017-01-12] MEDS: CARVEDILOL 12.5MG TABLET PO SCH ×2 (08:26→21:52)
[2017-01-12] MEDS: ISOSORBIDE MONONITRATE 30MG TABLET SR 24HR PO SCH (08:26)
[2017-01-12] MEDS: FLUCONAZOLE 100MG TABLET PO SCH (08:27)
[2017-01-12] MEDS: ASPIRIN 81MG EC TABLET PO SCH (08:27)
[2017-01-12] MEDS: ENOXAPARIN 30MG/0.3ML SYR SUBCUT SCH (08:27)
[2017-01-12] MEDS: FERROUS SULFATE 325MG TABLET PO SCH (08:27)
[2017-01-12] MEDS: AMLODIPINE 10MG TABLET PO SCH (08:27)
[2017-01-12] MEDS: INSULIN LISPRO 100 UNITS/ML SUBCUT SCH ×4 (08:33→21:00)
[2017-01-12 11:04] LABS: HEMATOCRIT. 32.5 % (36.0-48.0); HEMOGLOBIN. 10.6 g/dL (12.0-16.0); LYMPHOCYTES % 14.7 % (20.0-50.0); MEAN CORPUSCULAR HEMOGLOBIN 29.7 pg (28.0-32.0); MEAN CORPUSCULAR VOLUME 91.3 fL (81.0-99.0); MEAN PLATELET VOLUME 8.2 fl (7.4-10.4); MONOCYTES % 7.4 % (2.0-8.0); NEUTROPHILS % 72.9 % (40.0-76.0); PLATELET 309 x1000/uL (130-400); RED BLOOD CELL COUNT 3.56 mill/uL (4.2-5.4); RED CELL DISTRIBUTION WIDTH 14.3 % (11.6-14.6)
[2017-01-12 20:00] VITALS: BP 112/79
[2017-01-12] MEDS: ATORVASTATIN CALCIUM 40MG TABLET PO SCH (21:51)
[2017-01-12] MEDS: DONEPEZIL HCL 5MG TABLET PO SCH (21:51)
[2017-01-12] MEDS: TEMAZEPAM 15MG CAPSULE PO SCH (21:51)
[2017-01-12] MEDS: INSULIN DETEMIR UD 100 UNITS/ML SYR SUBCUT SCH (21:53)
[2017-01-13] MEDS: HYDRALAZINE HCL 100MG TABLET PO SCH (05:26)
[2017-01-13] MEDS: BLOOD SUGAR DIAGNOSTIC STRIP TEST SCH ×2 (05:27→12:04)
[2017-01-13] MEDS: FAMOTIDINE 20MG TABLET PO SCH (05:47)
[2017-01-13 06:50] LABS: BASOPHILS % 0.8 % (0.0-2.0); EOSINOPHILS % 4.3 % (0.0-5.0); HEMATOCRIT. 31.7 % (36.0-48.0); HEMOGLOBIN. 10.3 g/dL (12.0-16.0); LYMPHOCYTES % 21.3 % (20.0-50.0); MEAN CORPUSCULAR HEMOGLOBIN 29.4 pg (28.0-32.0); MEAN CORPUSCULAR VOLUME 90.7 fL (81.0-99.0); MEAN PLATELET VOLUME 8.1 fl (7.4-10.4); MONOCYTES % 10.3 % (2.0-8.0); NEUTROPHILS % 63.3 % (40.0-76.0); PLATELET 295 x1000/uL (130-400); RED CELL DISTRIBUTION WIDTH 14.1 % (11.6-14.6)
[2017-01-13 08:00] VITALS: BP 126/74
[2017-01-13] MEDS: AMLODIPINE 10MG TABLET PO SCH (08:33)
[2017-01-13] MEDS: CARVEDILOL 12.5MG TABLET PO SCH (08:33)
[2017-01-13] MEDS: INSULIN LISPRO 100 UNITS/ML SUBCUT SCH (08:35)
[2017-01-13] MEDS: FERROUS SULFATE 325MG TABLET PO SCH (08:44)
[2017-01-13] MEDS: ISOSORBIDE MONONITRATE 30MG TABLET SR 24HR PO SCH (08:44)
[2017-01-13] MEDS: ASPIRIN 81MG EC TABLET PO SCH (08:44)
[2017-01-13] MEDS: ENOXAPARIN 30MG/0.3ML SYR SUBCUT SCH (08:45)
[2017-01-13] MEDS: FLUCONAZOLE 100MG TABLET PO SCH (08:45)
[2017-01-13] MEDS: LACTULOSE 20G/30ML UDC PO SCH (08:45)
[2017-01-13 10:33] VITALS: BP 126/74
== END 2017-01-13 13:45 | disposition home health service (06) | DRG 291 ==
PROVIDERS: ADMIT Physical Medicine & Rehabilitation Spinal Cord Injury Medicine; ATTEND Family Medicine Adult Medicine
DX: I13.0 Hypertensive heart and chronic kidney disease with heart failure and stage 1 through stage 4 chronic kidney disease, or unspecified chronic kidney disease (principal); J96.20 Acute and chronic respiratory failure, unspecified whether with hypoxia or hypercapnia; E43 Unspecified severe protein-calorie malnutrition; J18.9 Pneumonia, unspecified organism; G92 Toxic encephalopathy; E87.2 Acidosis; N18.4 Chronic kidney disease, stage 4 (severe); B49 Unspecified mycosis; N17.9 Acute kidney failure, unspecified; E11.22 Type 2 diabetes mellitus with diabetic chronic kidney disease; D63.1 Anemia in chronic kidney disease; I50.23 Acute on chronic systolic (congestive) heart failure; N39.0 Urinary tract infection, site not specified; R13.10 Dysphagia, unspecified; D63.8 Anemia in other chronic diseases classified elsewhere; F03.90 Unspecified dementia, unspecified severity, without behavioral disturbance, psychotic disturbance, mood disturbance, and anxiety; E78.00 Pure hypercholesterolemia, unspecified; K59.00 Constipation, unspecified; I25.5 Ischemic cardiomyopathy; R26.9 Unspecified abnormalities of gait and mobility; R53.81 Other malaise; D50.9 Iron deficiency anemia, unspecified; E78.5 Hyperlipidemia, unspecified; Z79.4 Long term (current) use of insulin; I25.2 Old myocardial infarction; Z87.440 Personal history of urinary (tract) infections; Z88.8 Allergy status to other drugs, medicaments and biological substances; Z90.49 Acquired absence of other specified parts of digestive tract; Z68.23 Body mass index [BMI] 23.0-23.9, adult; Z79.899 Other long term (current) drug therapy
CPT/HCPCS: 36415; 70551; 80048; 80053; 80061; 81001; 82140; 82270; 82306; 82575; 82607; 82728; 82746; 82962; 83036; 83540; 83550; 83735; 84100; 84134; 84439; 84443; 84481; 84630; 85025; 87086; 92523; 92610; 93970; 97110; 97112; 97116; 97163; 97166; 97530; 97532; 97535; A6261; C1893; J1650; J1815; J7030; J7060; J7070; Q0162; A4315